=== PATIENT | male | born 1985 | race Caucasian/White ===

== ENCOUNTER → 2020-02-25 | Outpatient (CLI) | payer OTHER ==
[~2020-02-25] MED LIST: ALBU90OI INH; GABA400 PO
== END | disposition home or self-care (01) ==
LOC: LAB 17:58 → LAB SHORT 17:58
DX: E75.21 Fabry (-Anderson) disease (principal)
CPT/HCPCS: 86332

== ENCOUNTER 2020-07-10 10:08 | Emergency (ER) | payer OTHER ==
[~2020-07-10] VITALS: Ht 165.1 cm; Wt 53.5 kg
[2020-07-10] MEDS ORDERED: GABA400 PO (10:29)
[2020-07-10] MEDS ORDERED: ALBU90OI INH (10:30)
[2020-07-10 11:59] LABS: SARS-Cov-2 (COVID-19) PCR, MMC NEGATIVE (NEGATIVE)
== END 2020-07-10 12:12 | disposition home or self-care (01) ==
LOC: ER 10:08
PROVIDERS: Emergency Medicine
DX: J06.9 Acute upper respiratory infection, unspecified (principal); F17.210 Nicotine dependence, cigarettes, uncomplicated; Z20.822 Contact with and (suspected) exposure to COVID-19
CPT/HCPCS: 71045; 99283-25; U0004

== ENCOUNTER → 2020-07-14 | Outpatient (CLI) | payer OTHER ==
[2020-07-14 16:11] LABS: Appearance, Urine Clear (Clear); Bilirubin, Urine Neg (Neg); Blood, Urine 1+ (Neg); Color, Urine Yellow (P-Yellow); Glucose Qualitative, Urine Neg (Neg); Ketones, Urine Neg (Neg); Leukocyte Esterase, Urine Neg (Neg); Nitrite, Urine Neg (Neg); Protein, Urine 1+ (Neg); Urobilinogen, Urine NORM (Normal)
[2020-07-14 16:47] LABS: Protein, Urine Random 26.5 mg/dL (0.0-11.9); Protein/Creat Ratio, Ur Random 0.2
[2020-07-14 16:51] LABS: Microalbumin, Random Urine 79.7 mg/L (0.000-20.000)
[2020-07-14 17:29] LABS: Bacteria Rare /hpf; Red Blood Cells, Urine 0-2 /hpf (0-2); Squamous Epithelial Cells Rare /hpf (Few); White Blood Cells, Urine 0-2 /hpf (0-5)
== END | disposition home or self-care (01) ==
LOC: LAB 13:11 → LAB SHORT 13:11
PROVIDERS: Nurse Practitioner Pediatrics
DX: E75.21 Fabry (-Anderson) disease (principal)
CPT/HCPCS: 81001; 82043; 82542; 82570; 84156; 86332

== ENCOUNTER → 2023-01-24 | Outpatient (CLI) | payer OTHER | END | disposition home or self-care (01) | LOC: LAB 17:49 → LAB SHORT 17:49 | DX: J02.9 Acute pharyngitis, unspecified (principal) | CPT/HCPCS: 87081 ==